=== PATIENT | male | born 1985 | race Caucasian/White ===

== ENCOUNTER → 2017-09-03 15:17 | Outpatient (CLI) | payer BC, SELFPAY ==
--- NOTE | 2017-09-03 15:23 | XR_ITS ---
XR foot LT min 3V HISTORY: Posttraumatic pain ITS.REASON: LT FOOT PAIN ORDERING PHYSICIAN: Bereket Fisher MD PATIENT AGE: 32 years COMPARISON: None FINDINGS: No fracture or dislocation. No lytic or blastic change. There is normal mineralization.. The joint spaces are well-preserved. No significant degenerative/arthritic changes. No erosive changes evident. Incidental note made of a small ununited enthesophyte at the Achilles insertion IMPRESSION: Negative, no acute finding
== END ==
PROVIDERS: PCP Family Medicine; Visit Provider Family Medicine
DX: M79.672 Pain in left foot (principal)
CPT/HCPCS: 73630

== ENCOUNTER → 2017-09-22 13:49 | Outpatient (CLI) | payer BC, SELFPAY ==
--- NOTE | 2017-09-22 13:55 | XR_ITS ---
XR foot LT min 3V HISTORY: Follow-up fracture ITS.REASON: HEALING OF LEFT FOOT TOE FX ORDERING PHYSICIAN: Bereket Fisher MD PATIENT AGE: 32 years COMPARISON: 09/03/2017 FINDINGS: Nondisplaced oblique fracture once again noted involving the mid shaft of the proximal phalanx of the fifth toe. The fracture line is still visible. No callus formation. IMPRESSION: Overall no change nondisplaced fracture proximal phalanx fifth toe
== END ==
PROVIDERS: PCP Family Medicine; Visit Provider Family Medicine
DX: S92.515D Nondisplaced fracture of proximal phalanx of left lesser toe(s), subsequent encounter for fracture with routine healing (principal)
CPT/HCPCS: 73630

== ENCOUNTER → 2017-10-06 10:36 | Outpatient (CLI) | payer BC, SELFPAY ==
--- NOTE | 2017-10-06 10:40 | XR_ITS ---
XR foot LT min 3V HISTORY: Follow-up fracture ITS.REASON: HEALING OF LEFT FOOT FX ORDERING PHYSICIAN: Bereket Fisher MD PATIENT AGE: 32 years COMPARISON: Left foot 09/03/2017 and 09/23/2007. FINDINGS: There now is faint callus summation at the proximal end of the oblique fracture proximal phalanx little toe. The fracture line still readily visible however. The foot is otherwise unremarkable. IMPRESSION: Appearance of callus formation at the fracture site suggesting early healing
== END ==
PROVIDERS: PCP Family Medicine; Visit Provider Family Medicine
DX: S92.515D Nondisplaced fracture of proximal phalanx of left lesser toe(s), subsequent encounter for fracture with routine healing (principal)
CPT/HCPCS: 73630

== ENCOUNTER 2020-02-06 10:32 | Emergency (ER) | payer BC, SELFPAY ==
[2020-02-06 10:45] VITALS: BP 142/102; PULSE 88; RESP 20; TEMP 36.9; O2SAT 99; BMI 25.9
--- NOTE | 2020-02-06 11:00 | XR_ITS ---
PROCEDURE: CR XR HAND LT MIN 3V.... From 02/06/2020 CR XR WRIST LT MIN 3V.....from 02/06/2020 Referring Doctor: Jasmeet Patel Patient Age:35Y CLINICAL INDICATION: FALL, injury left hand and wrist pain Pain most evident about the 1st MTP joint and into the left wrist COMPARISON: No studies prior to today CR XR HAND LT MIN 3V.... From 02/06/2020 CR XR WRIST LT MIN 3V.....from 02/06/2020 FINDINGS: LEFT WRIST 3 VIEW: AP LATERAL AND OBLIQUE The left wrist is intact with no fracture nor dislocation. Bones are well mineralized with no erosions and with normal relationships.. Would specifically note the region of the 1st MTP joint and 1st metatarsal appear intact LEFT HAND 3 VIEW: AP LATERAL AND OBLIQUE left hand but no fracture. No dislocation. Normal osseous relationships. Particular attention directed towards the thumb and 1st MTP joint but these appear intact. Joint space well maintained here as well. IMPRESSION: No fracture or discrete acute findings at Left Hand Or Left Wrist The left hand and left wrist appear intact. Dictated by: Gaurav Anthony MD 02/06/2020 12:22 Gaurav Anthony MD in [place] 02/06/2020 12:22
--- NOTE | 2020-02-06 11:00 | XR_ITS ---
PROCEDURE: XR LUMBAR SPINE 2-3V Referring Doctor: Jasmeet Patel Patient Age:35Y CLINICAL INDICATION: FALL landed on back pain lumbar spine and coccyx. COMPARISON: CR XR COCCYX 2V from 02/06/2020 FINDINGS: LUMBAR SPINE 3 VIEW: AP LATERAL AND LATERAL SPOT VIEW LUMBOSACRAL JUNCTION No acute findings of the lumbar spine. Lumbar vertebral bodies are intact normal alignment. No compression fractures but the intervertebral disc spaces are well maintained throughout. The pedicles, transverse processes SI joints in views of sacrum unremarkable.. The pedicles are intact. Transverse processes intact no spondylolysis or listhesis evident on these views. SACRUM/COCCYX 2 VIEW: AP LATERAL AND LATERAL SPOT The coccyx shows normal alignment. No displacement. What appears to be normal segmentation seen at the tip of sacrum and into the coccyx with no definitive acute fracture. No hematoma in the area pre shaded. I would note that the coccyx is 1 of the more more variable bones the human body and thus clinical correlation here is particularly important particularly and regards to subtle fractures coccyx. However no convincing nor definitive fracture seen on plain film. Sacrum is intact. SI joints intact. Pubis intact IMPRESSION: No acute findings lumbar spine nor coccyx. No fracture identified at lumbar spine nor sacrum nor coccyx Dictated by: Gaurav Anthony MD 02/06/2020 14:29 Gaurav Anthony MD in [place] 02/06/2020 14:29
--- NOTE | 2020-02-06 12:20 | HMH.EDUTC ---
[facility] [place] Clinical Impression: Fractured coccyx Qualifiers: Encounter type: initial encounter Fracture type: closed Qualified Code(s): S32.2XXA - Fracture of coccyx, initial encounter for closed fracture Left wrist sprain Qualifiers: Encounter type: initial encounter Qualified Code(s): S63.502A - Unspecified sprain of left wrist, initial encounter Disposition: Home, Self-Care Condition on Discharge: Good Instructions: DI for Wrist Fracture, DI for Coccyx Fracture Additional Instructions: Rest the extremity, apply ice for 15 minutes as tolerated three or four times per day, Elevate the extremity as tolerated while you are resting. Take ibuprofen for pain. I sent in a prescription to your pharmacy. Follow up with Dr. Rangel (orthopedics). I put in a referral but you need to call his office and schedule an appointment. Follow up with your regular doctor. GO TO THE ER FOR ANY WORSENING SYMPTOMS Prescriptions: Ibuprofen [Ibuprofen 800mg Tablet] 800 mg PO Q8HP PRN #30 tab PRN Reason: Moderate Pain Transmission Status: Received by [id number] Referrals: Rene Lopez MD [Primary Care Provider] - Pelon Rangel MD [Staff Physician] - Forms: Work/School Release Time of Disposition: 12:24 Medical Decision Making - Medical Records Medical records reviewed: No: I reviewed the patient's medical records. - Devin Inquiry Pt receiving controlled substance: No Vital Signs: 02/06/20 10:45 02/06/20 12:26 Temperature 98.5 F 98.5 F Temperature Source Oral Pulse Rate 88 Pulse Rate [Right Brachial] 88 Respiratory Rate 20 20 Blood Pressure 142/102 H Blood Pressure [Right Arm] 142/102 H Blood Pressure Mean [Right Arm] 115 Blood Pressure Source [Right Arm] Automatic Cuff Blood Pressure Position [Right Arm] Sitting 02 Sat by Pulse Oximetry 99 Oxygen Delivery Method Room Air - Radiology Data #1 Image(s): L-Spine Image Reviewed: Yes I reviewed the patient's radiology image, Yes I have reviewed radiologist's interpretation Preliminary Findings: No Fracture Seen PROCEDURE: XR LUMBAR SPINE 2-3V Referring Doctor: Jasmeet Patel Patient Age:35Y CLINICAL INDICATION: FALL landed on back pain lumbar spine and coccyx. COMPARISON: CR XR COCCYX 2V from 02/06/2020 FINDINGS: LUMBAR SPINE 3 VIEW: AP LATERAL AND LATERAL SPOT VIEW LUMBOSACRAL JUNCTION No acute findings of the lumbar spine. Lumbar vertebral bodies are intact normal alignment. No compression fractures but the intervertebral disc spaces are well maintained throughout. The pedicles, transverse processes SI joints in views of sacrum unremarkable.. The pedicles are intact. Transverse processes intact no spondylolysis or listhesis evident on these views. SACRUM/COCCYX 2 VIEW: AP LATERAL AND LATERAL SPOT The coccyx shows normal alignment. No displacement. What appears to be normal segmentation seen at the tip of sacrum and into the coccyx with no definitive acute fracture. No hematoma in the area pre shaded. I would note that the coccyx is 1 of the more more variable bones the human body and thus clinical correlation here is particularly important particularly and regards to subtle fractures coccyx. However no convincing nor definitive fracture seen on plain film. Sacrum is intact. SI joints intact. Pubis intact IMPRESSION: No acute findings lumbar spine nor coccyx. No fracture identified at lumbar spine nor sacrum nor coccyx Dictated by: Gaurav Anthony MD 02/06/2020 14:29 Gaurav Anthony MD in [place] 02/06/2020 14:29 [facility] [place]PI - General Stated complaint: fall 02/05 back and butt pain Time Seen by Provider: 02/06/20 11:55 Mode of Arrival: Ambulatory Source of Information: Patient, Spouse Limitations: No Limitations Description of Symptoms (Recalled from Triage Doc. by RN): PATIENT STATES HE WAS ON HIS DAUGHTER'S HOVERBOARD YESTERDAY WHEN HE FELL OFF OF IT LANDING ON HIS MIRI
[2020-02-06 12:26] VITALS: BP 142/102; PULSE 88; RESP 20; TEMP 36.9; O2SAT 99
--- NOTE | 2020-02-06 13:47 | PC.NURSE ---
NOTIFIED PATIENT OF RADIOLOGIST READING OF XRAY. INSTRUCTED PATIEN TO FOLLOW UP WITH PCP
== END 2020-02-06 12:30 | disposition home or self-care (01) ==
LOC: UTC 10:34 → ER 10:51 → UTC 10:59
PROVIDERS: Emergency Provider Nurse Practitioner Family; PCP Family Medicine
DX: S32.2XXA Fracture of coccyx, initial encounter for closed fracture (principal); S63.502A Unspecified sprain of left wrist, initial encounter; V00.138A Other skateboard accident, initial encounter; Y93.89 Activity, other specified
CPT/HCPCS: 29125; 72100; 72220; 73110; 73130; 99203

== ENCOUNTER 2020-04-21 09:12 | Day surgery (SDC) | payer BC, SELFPAY ==
[2020-04-18 11:24] VITALS: BMI 26.4
[2020-04-21] VITALS (12 sets, daily range): BP systolic 120–137; BP diastolic 55–81; PULSE 73–85; RESP 16–20; TEMP 36.1–36.6; O2SAT 95–99
[2020-04-21 09:57] LABS: Basophils % 0.6 % (0.1-2.0); Eosinophils # 0.1 K/mm3 (0.0-0.4); Eosinophils % 1.4 % (0.1-12.0); Hematocrit 46.1 % (42.0-52.0); Hemoglobin 15.4 g/dL (14.1-18.0); Lymphocytes % 22.5 % (10-50); Mean Corpuscular HGB Conc 33.5 g/dL (31.8-35.4); Mean Corpuscular Hemoglobin 29.2 pg (27.0-31.2); Mean Corpuscular Volume 87.2 fl (80-94); Mean Platelet Volume 7.4 fl (7.4-10.4); Monocytes # 0.3 K/mm3 (0.1-1.0); Monocytes % 6.8 % (1.7-9.3); Neutrophils # 2.9 K/mm3 (1.8-7.8); Neutrophils % 68.7 % (37.0-80.0); Platelet Count 196 K/mm3 (142-424); Red Blood Count 5.28 M/mm3 (4.60-6.20); Red Cell Distribution Width 13.2 % (11.5-17.5); White Blood Count 4.3 K/mm3 (4.8-10.8)
[2020-04-21 09:59] LABS: Chloride 106 mmol/L (98-107); Potassium 4.1 mmoL/L (3.5-5.1); Sodium 144 mmol/L (136-145)
[2020-04-21 10:02] LABS: Anion Gap 12.1 mEq/L (5-15); Blood Urea Nitrogen 14 mg/dl (9-20); Carbon Dioxide 30 mmol/L (22.0-30.0); Creatinine Clearance Estimated 159 mL/min (50-200); Estimated Glomerular Filt Rate 111 ml/min (>60); GFR (African American) 134 ML/MIN (>60)
[2020-04-21 10:03] LABS: Calcium 9.8 mg/dl (8.4-10.2); Glucose 109 mg/dl (74-100)
--- NOTE | 2020-04-21 10:55 | P.OP_ITS ---
Date of procedure: 04/21/20 Pre-op Diagnosis:: 1.75 cm right scalp cyst Post-op Diagnosis:: Same Procedure performed:: Excision of 1.75 cm right scalp cyst Surgeon:: Jesus Cruz MD Anesthesia: LMA Estimated blood loss (mL): 15 Operative findings:: Lesion excised in toto Primary closure completed Operative note:: After informed consent was obtained the patient was taken to the operating room and placed in the supine position. General anesthesia with laryngeal mask airway was achieved. His right scalp was prepped and draped in a sterile fa shion. After infiltration of local anesthetic an elliptical incision was made around the lesion. The lesion was excised in toto and passed off for pathologic evaluation. Electrocautery was utilized to achieve hemostasis. Electrocautery was also utilized to raise subcutaneous flaps to facilitate closure. Skin was reapproximated with interrupted 4-0 nylon. Dressings were applied and the patient was transferred to recovery in stable condition after removal of his laryngeal mask airway. Condition: stable Disposition: PACU Specimens:: Right scalp cyst Complications:: No immediate
--- NOTE | 2020-04-21 11:05 | HMH.ANESCL ---
[facility] Anesthesia Checklist - Patient Identification Patient Identification: Arm Band, Verbal (Name & ) - Structural Data Admitted From: Home Planned Operative Procedure/s: scalp lesion Consent for Planned Operative Procedure(s) Verified: Yes Verified Documents: Surgical Consent - NPO Status Verified Time NPO: 00:00 - Additional verifications Anesthesia Reactions: No Hx Blood Transfusions: No Blood Transfusion Reaction: No - Anesthesia Plan Anesthesia Risk discussed: Yes Anesthesia Plan: Verified ASA Class: I Anesthesia Type: General [facility] History Medical History: Denies:: Cancer, Diabetes Mellitus Type 1, Diabetes Mellitus Type 2, Internal Pacemaker, MRSA, Seizures *Have you ever received a pneumonia vaccine?: No *Have you received a flu vaccine this season?: No Other Medical History: Denies: Blood Transfusion Reaction Anesthesia experience/problems:: none Other Surgeries: Yes: No Previous Surgery. No: Pacemaker Amputation: No Fractures: No - *Social History Last grade of school completed: Some college Smoking Status: Never smoker Alcohol Intake: current Alcohol Intake Frequency:: holidays/special occasions only Substance Use Type: denies use *Occupational Status:: employed Housing: house Household Members: spouse *Travel in the last 8 weeks: None Family Hx:: No significant family history
--- NOTE | 2020-04-21 11:06 | HMH.ANESI ---
[facility] Anesthesia Record Part I Intake, IV Amount: 1,000 Estimated blood loss (mL): 20 Urine output (mL): 0 Blood Products used (#): none Blood Pressure: 133/71 SaO2: 98 Pulse Rate: 76 Respiratory Rate: 18 Temperature: 97.6 F Patient is:: Awake Stable to PACU at:: 11:08
--- NOTE | 2020-04-21 15:15 | P.PN_ITS ---
[facility] Anesthesia Record Part II Discharge Time: 11:30 Destination: Surgical Day Care (OP Surgery) PACU nurse assessment reviewed?: Yes Patient Condition:: Good Anesthesia Complications:: None Swallowing reflex intact?: Yes Cyanosis?: No Blood Pressure: 131/80 Pulse Rate: 85 Temperature: 97.8 F Mental Status: Alert & Oriented Pain level:: 0 Nausea and/or vomitting:: None Intake, IV Amount: 0
== END 2020-04-21 12:25 | disposition home or self-care (01) ==
PROVIDERS: PCP Family Medicine; Visit Provider Surgery
PROC: (CPT 11422; principal; 2020-04-21 10:45)
DX: L72.12 Trichodermal cyst (principal)
CPT/HCPCS: 11422; 80048; 85025; J2405

== ENCOUNTER → 2021-03-07 19:21 | Outpatient (CLI) | payer BC, SELFPAY | PROVIDERS: Visit Provider Nurse Practitioner Family | DX: U07.1 COVID-19 (principal); J02.9 Acute pharyngitis, unspecified | CPT/HCPCS: C9803; U0003; U0005 ==

== ENCOUNTER → 2021-03-09 10:28 | Outpatient (CLI) | payer BC, SELFPAY | PROVIDERS: PCP Family Medicine; Visit Provider Nurse Practitioner | DX: Z20.822 Contact with and (suspected) exposure to COVID-19 (principal) | CPT/HCPCS: C9803; U0003; U0005 ==

== ENCOUNTER 2021-04-03 12:44 | Emergency (ER) | payer BC, SELFPAY ==
[2021-04-03 14:00] VITALS: BP 136/82; PULSE 106; RESP 18; TEMP 37.6; O2SAT 98; BMI 26.4
[2021-04-03 14:13] LABS: UTC Influenza A Antigen Negative (Negative); UTC Influenza B Antigen Negative (Negative)
[2021-04-03 14:14] LABS: UTC Strep Screen (Rapid) Negative (Negative)
--- NOTE | 2021-04-03 14:32 | HMH.EDUTC ---
[facility] [place] Disposition Clinical Impression: Viral syndrome Disposition: Home, Self-Care Condition on Discharge: Good Instructions: DI for Viral Syndrome, DI for COVID-19 (Suspected or Confirmed ), Preventing the Spread of Coronavirus Discharge Instructions Additional Instructions: *Monitor Temp, Over the counter Motrin or Tylenol as directed/as needed Tylenol every 4 hours and Motrin every 6 hours (as long as your family doctor has told you that you can take it) for fever or pain. and straight to ER if unable to lower temp less than 101.0 after medication given *Warm salt water gargles may help to soothe the throat *Throat Lozenges *Warm fluids like tea with honey may help to soothe the throat *Sleep elevated *Humidifier/Vaporizer Your throat swab was sent for culture. Those results are typically sent to your primary care. Be sure to follow up in 2-3 days with your family doctor/primary care physician if no improvement so they can review those result and treat if necessary. If you don?t have a primary care doctor, I recommend you get one but in the mean time, you will have to return to a walk in clinic Follow up IMMEDIATELY for new or worsening symptoms or no Noticeable improvement over the next 48-72 hours. 911 for difficulty breathing or swallowing You were tested for today for COVID19 your test result should be back in the next 24-48 hours, you may check your COVID test result on the [facility] My Health Portal if you have trouble logging on you may call support for assistance You was given a handout with instructions for Self Quarantine and Self isolation for while you wait on test results and what to do if they are positive If you are positive the Health Dept will be contacting you also Make sure to take your Vitamins Vit. C Vit D and Zinc if you can take them Referrals: Rene Lopez MD [Primary Care Provider] - As needed Forms: Work/School Release Time of Disposition: 14:44 Medical Decision Making - Devin Inquiry Pt receiving controlled substance: No Devin was queried for this patient: No Vital Signs: 04/03/21 14:00 Temperature 99.6 F Temperature Source Oral Pulse Rate [Right Brachial] 106 H Respiratory Rate 18 Blood Pressure [Right Arm] 136/82 Blood Pressure Mean [Right Arm] 100 Blood Pressure Source [Right Arm] Automatic Cuff Blood Pressure Position [Right Arm] Sitting 02 Sat by Pulse Oximetry 98 Oxygen Delivery Method Room Air - Lab Data Lab results reviewed: Yes: I reviewed the patient's lab results. Lab Results 04/03/21 14:01: Strep Scn Rapid Clinic Negative 04/03/21 14:01: Influenza Type A Ag Negative, Influenza Type B Ag Negative Orders (Tests/Meds): ORDERS Category Date Time Status Covid-19 Nasal PCR ([facility]) Routine Lab 04/03/21 14:01 Received Strep Screen Confirmation Routine Micro 04/03/21 14:01 Received [facility] UTC HPI - General Stated complaint: fever, sore throat, body aches, congestion Time Seen by Provider: 04/03/21 14:32 Mode of Arrival: Ambulatory Source of Information: Patient Limitations: No Limitations Description of Symptoms (Recalled from Triage Doc. by RN): PATIENT C/O BODY ACHES, FEVER, AND SORE THROAT SINCE YESTERDAY HEENT Symptoms (Recalled from RN notes): Yes Resp Symptoms (Recalled from RN notes): No Skin Symptoms (Recalled from RN notes): No MS Symptoms (Recalled from RN notes): No Functional Status (Recalled from RN notes): WNL - History of Present Illness Provider Complaint: Patient state that he was around his father last week that has since tested positive COVID States that he has been having sore throat, cough, body aches, chills and fever States that today his throat was hurting worse and he was still feeling achy like he had the flu and wanted to get tested - Related Data Home Medications Medication Instructions Recorded Confirmed No Known Home Medications 03/07/21 04/03/21 Allergies Allergy/AdvReac Type Severity Reaction Status Date / Time N
[2021-04-03 14:40] VITALS: BP 136/82; PULSE 106; RESP 18; TEMP 37.6; O2SAT 98
== END 2021-04-03 14:44 | disposition home or self-care (01) ==
PROVIDERS: Emergency Provider Nurse Practitioner; PCP Family Medicine
DX: U07.1 COVID-19 (principal); J02.9 Acute pharyngitis, unspecified
CPT/HCPCS: 87804; 87880; 99203; C9803; G0463; U0003; U0005

== ENCOUNTER 2022-02-03 12:44 | Emergency (ER) | payer BC, SELFPAY ==
--- NOTE | 2022-02-03 14:25 | EXP.UTC ---
Discharge Plan Disposition Patient Disposition: Home, Self-Care Condition: Good Prescriptions Prescriptions: New azithromycin [Zithromax] 250 mg tablet 250 mg PO UD DOSE PK Qty: 6 0RF Rx Instructions: Take two (2) tablets today, then one (1) tablet days #2 thru #5 methylprednisolone 4 mg Tablets,Dose Pack 4 mg PO DIRECTED Qty: 21 0RF vrvmnexojptggeu-fzafkrwtb-GJ [Bromfed DM] 2-30-10 mg/5 mL Syrup 5 ml PO Q6H PRN (Reason: Cough) Qty: 240 0RF oseltamivir [Tamiflu] 75 mg capsule 75 mg PO BID Qty: 10 0RF Referrals Follow up/Referrals: Harinder Isaacs MD [Primary Care Provider] - See instructions Activity Restrictions/Add. Instructions Additional Instructions/Restrictions: Drink plenty of fluids. Take tylenol or ibuprofen for pain or fever. Take the medications as directed. Follow up with your regular doctor. GO TO THE ER FOR ANY WORSENING SYMPTOMS Clinical Impressions Clinical Impression: Viral syndrome, Bronchitis Stand Alone Forms Stand Alone Forms: Work/School Release Instructions Patient Instructions: DI for Acute Bronchitis, DI for Influenza -- Adult, DI for Viral Syndrome Discharge ED Provider: Jasmeet Patel [facility] General Stated complaint: Fever,Bodyache, cough Time Seen by Provider: 02/03/22 14:25 History of Present Illness Provider Complaint: He states that for the past 1 day he has had body aches, chills, fever and malaise. He has a productive cough with greenish sputum also. Related Data Previous Rx's Medication Instructions Recorded azithromycin 250 mg tablet 250 mg PO UD DOSE PK #6 tabs 02/03/22 (Zithromax) clmxoychygimdtt-zkphucfclhnagll-DS 5 ml PO Q6H PRN Cough #240 mL 02/03/22 2 mg-30 mg-10 mg/5 mL oral syrup (Bromfed DM) methylprednisolone 4 mg tablets in 4 mg PO DIRECTED #21 tabs 02/03/22 a dose pack oseltamivir 75 mg capsule (Tamiflu) 75 mg PO BID #10 caps 02/03/22 Allergies Allergy/AdvReac Type Severity Reaction Status Date / Time No Known Allergies Allergy Verified 02/03/22 14:38 [facility] Social History Smoking Status: Never smoker alcohol intake: current substance use type: denies use current occupational status: employed Travel in the last 8 weeks: None household members: spouse housing: house current occupation: [employer] caffeine: Yes ROS Obtained: Yes All systems reviewed & no additional complaints except as documented Constitutional Constitutional: Reports chills and Reports fever(s) Eyes Eyes: Denies eye discharge ENT Ears, Nose, Mouth, and Throat: Reports as per HPI Cardiovascular Cardiovascular: Denies chest pain Respiratory Respiratory: Denies chest congestion and Reports cough Gastrointestinal Gastrointestingal: Reports nausea; Denies abdominal pain, constipation, cramping, diarrhea or vomiting Musculoskeletal Musculoskeletal: Denies arthralgias Integumentary/Breasts Skin/Breast: Denies rash Neurologic Neurologic: Denies paresthesias Physical Exam General General appearance: alert and in no apparent distress Head Head exam: atraumatic, normocephalic and normal inspection Eye Eye exam: Present normal appearance, PERRL and EOMI ENT ENT exam: Present normal exam, normal oropharynx, mucous membranes moist, TM's normal bilaterally and normal external ear exam Neck Neck exam: Present normal inspection, full ROM and trachea midline; Absent meningismus or lymphadenopathy Chest Chest inspection: Present normal inspection and symmetric chest wall rise; Absent tenderness Respiratory Respiratory exam: Present normal lung sounds bilaterally; Absent respiratory distress Cardiovascular Cardiovascular exam: Present regular rate and normal rhythm; Absent JVD Abdominal Exam Abdominal exam: Present soft and normal bowel sounds; Absent distention, tenderness or guarding Extremities Exam Extremities exam: Present normal inspection, full RO
[2022-02-03 14:36] VITALS: BP 159/93; PULSE 108; RESP 16; TEMP 37.4; O2SAT 100; BMI 27.1
[2022-02-03 14:38] LABS: UTC Influenza A Antigen Negative (Negative); UTC Influenza B Antigen Negative (Negative)
[2022-02-03 15:11] VITALS: BP 159/93; PULSE 108; RESP 16; TEMP 37.4
[2022-02-03 15:22] LABS: Adenovirus,PCR Not Detected (NotDetected); Bordetella Pertussis Not Detected (NotDetected); Chlamydophila Pneumoniae, PCR Not Detected (NotDetected); Coronavirus 19, PCR Not Detected (NotDetected); Coronavirus 229E Not Detected (NotDetected); Coronavirus NL63 Not Detected (NotDetected); Coronavirus OC43 Not Detected (NotDetected); Coronovirus HKU1,PCR Not Detected (NotDetected); Human Metapneumovirus Not Detected (NotDetected); Influenza A, PCR Not Detected (NotDetected); Influenza AH1, PCR Not Detected (NotDetected); Influenza AH3,PCR Not Detected (NotDetected); Influenza B, PCR Not Detected (NotDetected); Mycoplasma Pneumoniae, PCR Not Detected (NotDetected); Parainfluenza 1, PCR Not Detected (NotDetected); Parainfluenza 2, PCR Not Detected (NotDetected); Parainfluenza 3, PCR Not Detected (NotDetected); Parainfluenza 4, PCR Not Detected (NotDetected); Respiratory Syncytial Virus Not Detected (NotDetected); Rhinovirus/Enterovirus Not Detected (NotDetected)
[2022-02-03 17:27] LABS: Influenza AH1, 2009 Detected (NotDetected)
--- NOTE | 2022-02-03 18:56 | PC.NURSE ---
pt notified about respiratory panel results
== END 2022-02-03 15:13 | disposition home or self-care (01) ==
PROVIDERS: Emergency Provider Nurse Practitioner Family; PCP Family Medicine
DX: J10.1 Influenza due to other identified influenza virus with other respiratory manifestations (principal); B34.9 Viral infection, unspecified; J40 Bronchitis, not specified as acute or chronic; Z20.822 Contact with and (suspected) exposure to COVID-19; R50.9 Fever, unspecified; R05.9 Cough, unspecified; M79.10 Myalgia, unspecified site; R53.81 Other malaise; Z79.52 Long term (current) use of systemic steroids
CPT/HCPCS: 87581; 87632; 87798; 87804; 99213; C9803; G0463; U0003; U0005

== ENCOUNTER 2022-09-04 08:04 | Emergency (ER) | payer BC, SELFPAY ==
[2022-09-04 08:05] VITALS: BP 145/90; PULSE 78; RESP 18; TEMP 36.7; O2SAT 98; BMI 27.1
--- NOTE | 2022-09-04 08:19 | EXP.UTC ---
Discharge Plan Disposition Patient Disposition: Home, Self-Care Condition: Good Prescriptions Prescriptions: New cephalexin 500 mg capsule 500 mg PO QID Qty: 40 0RF mupirocin 2 % ointment 1 applic topical TID 7 Days Qty: 15 0RF methylprednisolone 4 mg Tablets,Dose Pack 4 mg PO DIRECTED Qty: 21 0RF No Action azithromycin [Zithromax] 250 mg tablet 250 mg PO UD DOSE PK Qty: 6 0RF Rx Instructions: Take two (2) tablets today, then one (1) tablet days #2 thru #5 methylprednisolone 4 mg Tablets,Dose Pack 4 mg PO DIRECTED Qty: 21 0RF dtshneuvsmpvnit-bcmtkufuz-FA [Bromfed DM] 2-30-10 mg/5 mL Syrup 5 ml PO Q6H PRN (Reason: Cough) Qty: 240 0RF oseltamivir [Tamiflu] 75 mg capsule 75 mg PO BID Qty: 10 0RF Referrals Follow up/Referrals: Rene Lopez MD [Primary Care Provider] - See instructions Activity Restrictions/Add. Instructions Additional Instructions/Restrictions: Drink plenty of fluids. Take tylenol or ibuprofen for pain or fever. Take the medications as directed. Follow up with your regular doctor. GO TO THE ER FOR ANY WORSENING SYMPTOMS Clinical Impressions Clinical Impression: Impetigo, Sunburn Instructions Patient Instructions: Mupirocin, Cephalexin, DI for Impetigo Discharge ED Provider: Jasmeet Patel [facility] [place] HPI General Stated complaint: Possible boil on forehead/sunburn Mode of Arrival: Ambulatory Source of Information: Patient Limitations: No Limitations Time Seen by Provider: 09/04/22 08:19 Description of Symptoms (Recalled from Triage Doc. by RN): Got a bad sunburn on Friday and now he has an area that has popped up on his forehead that looks infected. HEENT Symptoms (Recalled from RN notes): No Resp Symptoms (Recalled from RN notes): No Skin Symptoms (Recalled from RN notes): Yes MS Symptoms (Recalled from RN notes): No Functional Status (Recalled from RN notes): wnl History of Present Illness Provider Complaint: He states that he has multiple sores on his forehead. They appeared after he got sunburned. He states that in the past he has had similar symptoms and he was diagnosed with impetigo. Related Data Previous Rx's Medication Instructions Recorded azithromycin 250 mg tablet 250 mg PO UD DOSE PK #6 tabs 02/03/22 (Zithromax) ccmpvoymetzyrhn-gujgopfcbtyitwx-LC 5 ml PO Q6H PRN Cough #240 mL 02/03/22 2 mg-30 mg-10 mg/5 mL oral syrup (Bromfed DM) methylprednisolone 4 mg tablets in 4 mg PO DIRECTED #21 tabs 02/03/22 a dose pack oseltamivir 75 mg capsule (Tamiflu) 75 mg PO BID #10 caps 02/03/22 cephalexin 500 mg capsule 500 mg PO QID #40 caps 09/04/22 methylprednisolone 4 mg tablets in 4 mg PO DIRECTED #21 tabs 09/04/22 a dose pack mupirocin 2 % topical ointment 1 applic topical TID 7 days #15 09/04/22 grams Allergies Allergy/AdvReac Type Severity Reaction Status Date / Time No Known Allergies Allergy Verified 02/03/22 14:38 Worker's Comp Is this a Worker's Comp case?: No [facility] Disclaimer: The information contained in this section may have been updated after the patient was seen, as this information can be updated by other users. Social History Smoking Status: Never smoker alcohol intake: current substance use type: denies use current occupational status: employed Travel in the last 8 weeks: None household members: spouse housing: house current occupation: [employer] caffeine: Yes ROS Obtained: Yes All systems reviewed & no additional complaints except as documented Constitutional Constitutional: Denies chills and Denies fever(s) Eyes Eyes: Denies eye discharge ENT Ears, Nose, Mouth, and Throat: Denies dizziness, Denies otalgia and Denies sore throat Cardiovascular Cardiovascular: Denies chest pain Respiratory Respiratory: Denies shortness of breath, Denies chest congestion, Denies cough, Denies stridor and Denies
[2022-09-04 08:49] VITALS: BP 145/90; PULSE 78; RESP 18; TEMP 36.7; O2SAT 98
== END 2022-09-04 08:50 | disposition home or self-care (01) ==
PROVIDERS: Emergency Provider Nurse Practitioner Family; PCP Family Medicine
DX: L01.00 Impetigo, unspecified (principal); L55.9 Sunburn, unspecified
CPT/HCPCS: 99212; 99214; G0463

== ENCOUNTER 2023-06-05 23:35 | Emergency (ER) | payer BC, SELFPAY ==
[2023-06-05 23:37] VITALS: BP 139/87; PULSE 125; RESP 19; TEMP 37.1; O2SAT 94; BMI 27.8
--- NOTE | 2023-06-05 23:51 | ED_ITS ---
Discharge Plan Disposition Patient Disposition: Home, Self-Care Chief Complaint: Nausea/Vomiting/Diarrhea Prescriptions Prescriptions: No Action azithromycin [Zithromax] 250 mg tablet 250 mg PO UD DOSE PK Qty: 6 0RF Rx Instructions: Take two (2) tablets today, then one (1) tablet days #2 thru #5 methylprednisolone 4 mg Tablets,Dose Pack 4 mg PO DIRECTED Qty: 21 0RF [id number]-[id number] [Bromfed DM] 2-30-10 mg/5 mL Syrup 5 ml PO Q6H PRN (Reason: Cough) Qty: 240 0RF oseltamivir [Tamiflu] 75 mg capsule 75 mg PO BID Qty: 10 0RF cephalexin 500 mg capsule 500 mg PO QID Qty: 40 0RF mupirocin 2 % ointment 1 applic topical TID 7 Days Qty: 15 0RF methylprednisolone 4 mg Tablets,Dose Pack 4 mg PO DIRECTED Qty: 21 0RF Referrals Follow up/Referrals: Provider,Referral, MD [Primary Care Provider] - See instructions Activity Restrictions/Add. Instructions Additional Instructions/Restrictions: Please follow-up with your primary care provider. Please return to the emergency department if you develop any new or worsening symptoms or become concerned for your health. It will take some time before your stool results return, potentially a couple of days or more. You will be called if the results indicate a bacterial infection that require treatment. Recommend taking Tylenol and ibuprofen as needed for pain and fever. Clinical Impressions Clinical Impression: Diarrhea, Fever Instructions Patient Instructions: DI for Diarrhea and Traveler's Diarrhea -- Adult, DI for Diarrhea and Traveler's Diarrhea -- Child, DI for Nausea -- Adult, DI for Nausea -- Child Discharge ED Provider: Dre Malone General Adult HPI General Chief complaint: Nausea/Vomiting/Diarrhea Stated complaint: achy, fever 102, gi issues Time Seen by Provider: 06/05/23 23:40 Mode of Arrival: Ambulatory Source of Information: Patient and Spouse Limitations: No Limitations Description of Symptoms (Recalled from ER Triage Doc. by RN): Patient reports that he began having vomiting and diarrhea on Friday. Had severe vomiting on Friday and has not had any emesis since that time. Patient has continued to have intermittent diarrhea, reporting diarrhea on at least 5 of the last 8 days, most recently at 4pm today. Patient reports that he began having a fever approximately 7pm which he did not treat with antipyretics at home. History of Present Illness HPI narrative: 38-year-old male with no significant past medical history presents with vomiting diarrhea. He had vomiting for 1 day at the onset of illness, has been having diarrhea ever since. He reports he is been having diarrhea for approximately a week and a half. He reports that he has been having generalized body aches, and developed a fever to 102 tonight. Denies any cough congestion rhinorrhea shortness of breath chest pain or abdominal pain. Reports no history of abdominal surgery. Reports no blood in the stool. He reports that he is having appropriate p.o. intake including solids and liquids. He did take amoxicillin, but it was over 2 months ago. Related Data Previous Rx's Medication Instructions Recorded azithromycin 250 mg tablet 250 mg PO UD DOSE PK #6 tabs 02/03/22 (Zithromax) [id number]-[id number]-[id number] 5 ml PO Q6H PRN Cough #240 mL 02/03/22 2 mg-30 mg-10 mg/5 mL oral syrup (Bromfed DM) methylprednisolone 4 mg tablets in 4 mg PO DIRECTED #21 tabs 02/03/22 a dose pack oseltamivir 75 mg capsule (Tamiflu) 75 mg PO BID #10 caps 02/03/22 cephalexin 500 mg capsule 500 mg PO QID #40 caps 09/04/22 methylprednisolone 4 mg tablets in 4 mg PO DIRECTED #21 tabs 09/04/22 a dose pack mupirocin 2 % topical ointment 1 applic topical TID 7 days #15 09/04/22 grams Allergies Allergy/AdvReac Type Severity Reaction Status Date / Time No Known Allergies Allergy Verified 02/03/22 14:38 [facility] Disclaimer: The information contained in this section may have been updated after the patient was seen, as this information can be updated by other users. Social History Smoking Status: Never smoker alcohol intake: current substance use type: denies use current occupational status: employed Travel in the last 8 weeks: None household members: spouse housing: house current occupation: [employer] caffeine: Yes ROS Obtained: Yes All systems reviewed & no additional complaints except as documented Physical Exam General General appearance: alert and in no apparent distress Head Head exam: atraumatic and normocephalic Eye Eye exam: Present normal appearance, PERRL and EOMI ENT ENT exam: Present normal oropharynx and normal external ear exam Neck Neck exam: Present normal inspection and full ROM Chest Chest inspection: Present normal inspection and symmetric chest wall rise; Absent tenderness Respiratory Respiratory exam: Present normal lung sounds bilaterally; Absent respiratory distress Cardiovascular Cardiovascular exam: Present normal rhythm and tachycardia Abdominal Exam Abdominal exam: Present soft; Absent distention, tenderness or guarding Extremities Exam Extremities exam: Present normal inspection; Absent edema or joint swelling Back Exam Back exam: Present normal inspection; Absent tenderness Neurological Exam Neurological exam: Present alert and oriented X3; Absent motor sensory deficit Psychiatric Psychiatric exam: Present normal affect and normal mood Skin Skin exam: Present warm, dry and normal color Lymphatic Lymphatic Findings: no adenopathy Medical Decision Making Medical Records Medical records reviewed: Yes I reviewed the patient's medical records. Devin Inquiry Pt receiving controlled substance: No Devin was queried for this patient: No Vital Signs: 06/05/23 23:37 Temperature 98.8 F Temperature Source Oral Pulse Rate [Left Radial] 125 H Respiratory Rate 19 Blood Pressure [Right Arm] 139/87 Blood Pressure Mean [Right Arm] 104 Blood Pressure Source [Right Arm] Automatic Cuff Blood Pressure Position [Right Arm] Sitting 02 Sat by Pulse Oximetry 94 L Oxygen Delivery Method Room Air Lab Data Lab results reviewed: Yes I reviewed the patient's lab results. Orders (Tests/Meds): ORDERS Category Date Time Status Diarrhea 23 Panel, PCR Stat Lab 06/05/23 23:50 Ordered Rapid PCR Covid and Flu A/B Stat Lab 06/05/23 23:50 Ordered Medical Decision Narrative: 38-year-old male with no significant past medical history presents with diarrhea for approximately 10 days, developed a fever today. History was obtained interactive discussion with patient, family. On arrival, patient is febrile, mildly tachycardic, otherwise well-appearing, moving all extremities spontaneously. Full physical exam performed and significant for benign abdominal exam, moist mucous membranes. Differential includes but is not limited to viral/bacterial gastroenteritis, dehydration, C. difficile. Workup initiated including COVID flu swab, full stool panel including C. difficile. Given patient history, exam and workup, patient's presentation most likely represents viral or bacterial gastroenteritis. Patient is not dehydrated and otherwise appears well. Given duration of symptoms, I think stool testing would be appropriate as he may require antibiotic therapy. I informed the patient that we will call to let him know the results of his stool sample. Patient was given instructions regarding symptomatic care. Was discharged in stable condition. Procedures Risk/Benefits of Procedure(s) Were Explained: Yes Critical Care Critical Care Time Critical Care Time: No
[2023-06-05 23:59] LABS: Coronavirus 19, PCR Not Detected (NotDetected); Influenza A, PCR Not Detected (NotDetected); Influenza B, PCR Not Detected (NotDetected)
--- NOTE | 2023-06-06 00:11 | PC.NURSE ---
Patient attempted to provide stool sample but was unable to provide sample at this time.
[2023-06-06 00:16] VITALS: BP 139/87; PULSE 125; RESP 19; TEMP 37.1; O2SAT 94
--- NOTE | 2023-06-11 09:33 | PC.NURSE ---
Received call from [facility] pharmacy in regards to azithromycin order. d/t diarrhea panel positive for capylobacter & norovirus azithromycin shortened to 5 day course. ok'ed by Dr. Haq.
== END 2023-06-06 00:25 | disposition home or self-care (01) ==
LOC: ER 06-06 00:11
PROVIDERS: Emergency Provider Emergency Medicine
DX: R11.10 Vomiting, unspecified (principal); R19.7 Diarrhea, unspecified; R50.9 Fever, unspecified
CPT/HCPCS: 87636; 99283

== ENCOUNTER 2023-06-06 18:05 | Outpatient (CLI) | payer BC, SELFPAY ==
[2023-06-06 18:31] LABS: Adenovirus F 40/41, stool Not Detected (NotDetected); Astrovirus Not Detected (NotDetected); Clostridium Difficile A/B, PCR Not Detected (NotDetected); Cryptosporidium Not Detected (NotDetected); Cyclospora Cayetanesis Not Detected (NotDetected); Entamoeba histolytica Not Detected (NotDetected); Enteroaggregative E coli Not Detected (NotDetected); Enteropathogenic E coli Not Detected (NotDetected); Enterotoxigenic E coli Not Detected (NotDetected); Giardia lamblia Not Detected (NotDetected); Plesimonas Shigalloides, PCR Not Detected (NotDetected); Rotavirus A Not Detected (NotDetected); Salmonella, PCR Not Detected (NotDetected); Sapovirus Not Detected (NotDetected); Shiga-like toxin E coli Not Detected (NotDetected); Shigella Enterovasive E coli Not Detected (NotDetected); Vibrio Cholerae Not Detected (NotDetected); Vibrio, PCR Not Detected (NotDetected); Yersinia Entercolitica, PCR Not Detected (NotDetected)
[2023-06-10 10:53] LABS: Campylobacter Detected (NotDetected); Norovirus Detected (NotDetected)
--- NOTE | 2023-06-10 11:33 | EXP.EVENT.NO ---
I was notified that the patient had a positive stool result for Campylobacter. I called the patient to see how he is doing and notify him of the results, and he states that he is feeling better and is starting to have solid stools. His symptoms have improved. Given this, I do not feel that there is indication for antibiotic treatment at this time. Patient was given instructions for continued supportive management.
== END 2023-06-06 23:59 ==
LOC: LAB.DROPOF 18:09
PROVIDERS: PCP Emergency Medicine; Visit Provider Emergency Medicine
DX: R11.2 Nausea with vomiting, unspecified (principal); R19.7 Diarrhea, unspecified; A04.5 Campylobacter enteritis; A08.11 Acute gastroenteropathy due to Norwalk agent
CPT/HCPCS: 87507